=== PATIENT | female | born 1945 | race Caucasian/White ===

== ENCOUNTER 2019-10-11 11:34 | Observation (INO) ==
[2019-10-11] MEDS ORDERED: IOPAMIDOL 100 ML BOTTLE IV ONE (11:35)
[2019-10-11] MEDS ORDERED: LABETALOL 5 MG/ML ML IV ONE ×2 (11:38→12:13)
--- NOTE | 2019-10-11 11:45 | Emergency Department Note ---
Neuro HPI - General Chief Complaint: Neuro Symptoms/Deficit Stated Complaint: Right sided Uncoordination. Time Seen by Provider: 10/11/19 11:43 Source: patient Mode of arrival: ambulatory Limitations: no limitations - History of Present Illness HPI Narrative: 73-year-old female last seen normal yesterday morning-over 24 hours ago. She comes in complaining of some confusion and difficulty writing and with balance. She had hip surgery [address] Cano and has been on aspirin since then. She does have a history of blood clots. Did have high blood pressure after the surgery but does not have a history of significant high blood pressure-she is only on 5 mg of amlodipine at home. Her blood pressure is very high here at 238 systolic. No recent illness. - Related Data Home Medications: Home Medications Medication Instructions Recorded Confirmed calcium PO 12/26/17 08/26/19 aspirin 81 mg tablet,delayed 81 mg PO QDAY 01/26/19 08/26/19 release cholecalciferol (vitamin D3) 25 2,000 unit PO QDAY cap 01/26/19 08/26/19 mcg (1,000 unit) capsule Previous Rx's Medication Instructions Recorded rosuvastatin 10 mg tablet 10 mg PO QDAY #90 tab 02/10/19 sertraline 50 mg tablet 50 mg PO QDAY #30 tab 06/16/19 amlodipine 5 mg tablet 5 mg PO QDAY #90 tab 08/13/19 metronidazole 500 mg tablet 500 mg PO BID #14 tab 08/26/19 Allergies/Adverse Reactions: Allergies Allergy/AdvReac Type Severity Reaction Status Date / Time shellfish derived Allergy Severe Diarrhea Verified 07/28/19 11:31 Review of Systems All systems ED: reviewed and negative except as stated. Past Medical History - Past Medical History Attestation: Yes: The following information was validated with the patient. 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 Denies: marijuana Physical Exam No acute distress able to answer questions properly. She is using both of her arms at the shoulders and elbows normally. No difficulty with fine motor control signing her name with her right hand-she is right-handed. Speech is normal here without dysarthria. She is wearing a wig. Normocephalic atraumatic. Conjunctive are clear sclerae white nonicteric. Extraocular movements are intact. Pupils are equal round reactive to light. No nasal discharge or congestion. Oropharynx pink and moist. Tongue is midline. No dysarthria. Neck is supple without lymphadenopathy or thyromegaly. She does not have a carotid bruit but she does have a loud systolic murmur that radiates to bilateral carotid. Heart is regular rate and rhythm. 2 out of 6 systolic murmur suspect aortic. Lungs are clear to auscultation bilaterally without wheezes rales rhonchi or respiratory distress. Abdomen soft nontender nondistended. No peritoneal signs or guarding. No pedal edema. She is able to lift both legs up against gravity without difficulty and hold them up. Lmmktw-us-cyte testing is normal and I do not see any evidence of ataxia or tremor. Reasonable historian Limitations: no limitations Course Vital Signs Pulse Rate 80 10/11/19 11:34 Respiratory Rate 18 10/11/19 11:34 Blood Pressure 238/112 10/11/19 11:34 Pulse Oximetry (%) 97 10/11/19 11:34 Pulse Rate 73 10/11/19 13:00 Respiratory Rate 19 10/11/19 13:00 Blood Pressure 184/78 10/11/19 13:00 Pulse Oximetry (%) 95 10/11/19 13:00 Neuro Symptoms/Deficit - Lab Data Lab results reviewed: Yes I reviewed the patient's lab results. Result diagrams: 10/11/19 11:40 10/11/19 11:40 Lab Results 10/11/19 10/11/19 10/11/19 Range/Units 11:40 11:40 11:40 WBC 7.4 (4.50-11.00) K/mcL RBC 4.62 (3.59-5.38) M/mcL Hgb 13.0 (11.2-15.7) g/dL Hct 39.5 (34.1-44.9) % POC Hct 39.0 (36.0-48.0) % MCV 85.5 (80.0-100.0) fL MCH 28.1 (26.0-34.0) pg MCHC 32.9 (31.0-36.0) g/dL RDW 13.8 (11.5-14.5) % Plt Count 267 (140-440) K/mcL MPV 10.4 (7.4-10.4) fL Gran % 69.1 (38.0-78.0) % Lymph % (Auto) 19.8 (15.5-49.0) % Haines % (Auto) 7.1 (1.0-12.0) % Eos % (Auto) 3.7 (0.0-7.0) % Baso % (Auto) 0.3 (0.0-2.0) % Gran # 5.09 (1.80-8.00) K/mcL Lymph # (Auto) 1.46 L (1.50-4.80) K/mcL Haines # (Auto) 0.52 (0.10-0.90) K/mcL Eos # (Auto) 0.27 (0.00-0.70) K/mcL Baso # (Auto) 0.02 (0.00-0.30) K/mcL POC PT 11.9 (11.9-14.5) sec POC INR 1.0 (0.9-1.2) APTT 29 (20-37) sec POC Sodium 138 (133-145) mmol/L Sodium 139 (133-145) mmol/L POC Potassium 3.8 (3.3-5.1) mmol/L Potassium 3.9 (3.3-5.1) mmol/L POC Chloride 105 (96-108) mmol/L Chloride 103 (96-108) mmol/L Carbon Dioxide 23 (22-30) mmol/L POC Total CO2 25 (22-30) mmol/L Anion Gap 13.0 (8-16) POC BUN 19 (8-23) mg/dl BUN 16 (8-23) mg/dl Creatinine 0.6 (0.6-1.1) mg/dl POC Creatinine 0.5 L (0.6-1.1) mg/dl GFR Calculation 90 Glucose 104 (70-105) mg/dL POC Glucose 104 (70-105) mg/dL Calcium 10.0 (8.6-10.4) mg/dl POC WB Ioniz Calcium 1.28 (1.16-1.32) mmol/L Total Bilirubin 0.4 (0.0-1.0) mg/dL AST 24 (0-37) U/l ALT 19 (0-40) U/l Alkaline Phosphatase 68 (39-117) U/L Troponin T (0-0.03) ng/ml Total Protein 7.0 (5.9-8.4) gm/dL Albumin 4.0 (3.2-5.2) gm/dL Globulin 3.0 (2.2-3.7) gm/dL Albumin/Globulin Ratio 1.3 (1.0-2.3) 05/25/20 Range/Units 11:40 WBC (4.50-11.00) K/mcL RBC (3.59-5.38) M/mcL Hgb (11.2-15.7) g/dL Hct (34.1-44.9) % POC Hct (36.0-48.0) % MCV (80.0-100.0) fL MCH (26.0-34.0) pg MCHC (31.0-36.0) g/dL RDW (11.5-14.5) % Plt Count (140-440) K/mcL MPV (7.4-10.4) fL Gran % (38.0-78.0) % Lymph % (Auto) (15.5-49.0) % Haines % (Auto) (1.0-12.0) % Eos % (Auto) (0.0-7.0) % Baso % (Auto) (0.0-2.0) % Gran # (1.80-8.00) K/mcL Lymph # (Auto) (1.50-4.80) K/mcL Haines # (Auto) (0.10-0.90) K/mcL Eos # (Auto) (0.00-0.70) K/mcL Baso # (Auto) (0.00-0.30) K/mcL POC PT (11.9-14.5) sec POC INR (0.9-1.2) APTT (20-37) sec POC Sodium (133-145) mmol/L Sodium (133-145) mmol/L POC Potassium (3.3-5.1) mmol/L Potassium (3.3-5.1) mmol/L POC Chloride (96-108) mmol/L Chloride (96-108) mmol/L Carbon Dioxide (22-30) mmol/L POC Total CO2 (22-30) mmol/L Anion Gap (8-16) POC BUN (8-23) mg/dl BUN (8-23) mg/dl Creatinine (0.6-1.1) mg/dl POC Creatinine (0.6-1.1) mg/dl GFR Calculation Glucose (70-105) mg/dL POC Glucose (70-105) mg/dL Calcium (8.6-10.4) mg/dl POC WB Ioniz Calcium (1.16-1.32) mmol/L Total Bilirubin (0.0-1.0) mg/dL AST (0-37) U/l ALT (0-40) U/l Alkaline Phosphatase (39-117) U/L Troponin T < 0.01 (0-0.03) ng/ml Total Protein (5.9-8.4) gm/dL Albumin (3.2-5.2) gm/dL Globulin (2.2-3.7) gm/dL Albumin/Globulin Ratio (1.0-2.3) - Radiology Data Radiology results reviewed: Yes I reviewed the patient's radiology results. Initial CT scan of the head was read as normal without contrast. 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 Currently she has significantly elevated hypertension which we have given labetalol for. We had to give 2 doses Her NIH score was 0. I did discuss the case with Dr. Cifuentes, tele-stroke at [facility] after doing the CT scan of the head. She is not a candidate for thrombolytic because she had surgery last week and her NIH score is low. I went ahead and order the CT angiogram of the head neck for further evaluation for thromboses. CT angiogram showed left carotid stenosis which may be part of her symptomato logy-however this is chronic and her symptoms have now resolved with blood pressure coming down. On review of her chart it does look like she has a known heart murmur as well as known left carotid bruit/stenosis. Blood pressure came down into the 180s systolic. No evidence for infection but blood cultures were ordered prior to all the labs coming I discussed the case with our hospitalist, Dr. Blanco, he agreed to accept the patient for further care and evaluation in the hospital. We will start nicardipine drip Disposition: Xfer As Inpt ([facility]) Condition: Serious Referrals: Leta Chau, [Primary Care Provider] -
[2019-10-11 12:09] LABS: POC Pro Time 11.9 sec (11.9-14.5)
[2019-10-11 12:11] LABS: POC Blood Urea Nitrogen 19 mg/dl (8-23); POC CO2 25 mmol/L (22-30); POC Calcium, Ionized 1.28 mmol/L (1.16-1.32); POC Chloride 105 mmol/L (96-108); POC Creatinine 0.5 mg/dl (0.6-1.1); POC Glucose, Random 104 mg/dL (70-105); POC Potassium 3.8 mmol/L (3.3-5.1); POC Sodium 138 mmol/L (133-145)
[2019-10-11 12:30] LABS: Basophils # (Auto) 0.02 K/mcL (0.00-0.30); Basophils % (Auto) 0.3 % (0.0-2.0); Eosinophils # (Auto) 0.27 K/mcL (0.00-0.70); Eosinophils % (Auto) 3.7 % (0.0-7.0); Granulocytes % (Auto) 69.1 % (38.0-78.0); Hematocrit 39.5 % (34.1-44.9); Lymphocytes # (Auto) 1.46 K/mcL (1.50-4.80); Lymphocytes % (Auto) 19.8 % (15.5-49.0); Mean Cell Volume 85.5 fL (80.0-100.0); Mean Corpuscular HGB Conc 32.9 g/dL (31.0-36.0); Mean Platelet Volume 10.4 fL (7.4-10.4); Monocytes # (Auto) 0.52 K/mcL (0.10-0.90); Monocytes % (Auto) 7.1 % (1.0-12.0); Platelet Count 267 K/mcL (140-440); RBC 4.62 M/mcL (3.59-5.38); Red Cell Distribution Width 13.8 % (11.5-14.5); WBC 7.4 K/mcL (4.50-11.00)
[2019-10-11 12:59] LABS: ALT/SGPT 19 U/l (0-40); AST/SGOT 24 U/l (0-37); Albumin/Globulin Ratio 1.3 (1.0-2.3); Alkaline Phosphatase 68 U/L (39-117); Bilirubin,Total 0.4 mg/dL (0.0-1.0); Blood Urea Nitrogen 16 mg/dl (8-23); Carbon Dioxide 23 mmol/L (22-30); Chloride 103 mmol/L (96-108); Glomerular Filtration Rate 90; Glucose 104 mg/dL (70-105)
[2019-10-11] MEDS ORDERED: niCARdipine 25 MG in 0.9 % SODIUM CHLORIDE 240 ML IV ONE (13:08)
--- NOTE | 2019-10-11 14:02 | Internal Med History&Physical ---
Medical - H&P: [facility] Patient information: Note initiated : 10/11/19 at 1:59 pm Service Date, if different from initiated Date: [] Patient: Lourdes Chang a 73 y/o F admitted on for Right sided Uncoordination.. Chief Complaint: [] History of present illness: Ms. Chang is a 73 year old F Who presents the ED after having symptoms of confusion ataxia right upper extremity dysmetria and expressive aphasia this morning. Patient had a revision of a previous right hip surgery on Friday. She had multiple issues with the right hip. She states she has been taking her Norvasc daily and aspirin 325 since the surgery. Previous to surgery she took a baby aspirin daily. She was doing relatively well until this morning. When she woke up she says she felt on, denied confusion but felt odd. She felt like she had trouble walking and she had trouble writing with her right hand only. She was able to comprehend and understand and sometimes she said she would try to express her self but a different word would come out. The symptoms lasted from about 5 to about 11 when she was coming into the ED. When the ED physician saw her after she got back from radiology she was back to normal had NIH score was 0 at that point. Case was discussed with stroke neurologist, patient not a candidate for any thrombolytics. CT head neck was done which showed carotid artery stenosis on the left side which is about 7%. She has been following with Dr. Coley for this. She does not take her blood pressure at home does not know what it typically runs. She is on amlodipine 5 mg daily. She has no history of stroke in the past. She does have a history of vascular stents in the legs. She did have a pulmonary embolus which was related to hormone replacement therapy. She denies any dysarthria or vision changes. Denies headaches. Denies focal numbness or weakness. Review of Systems: Pertinent positives as above. Denies headache/fever/chills/nausea/vomiting/chest or abdominal pain/cough/dyspnea/diarrhea. Remaining 10 point review of system reviewed negative Medical - H&P: [facility] Medical history: Medical History (Last Reviewed 08/26/19 @ 10:22 by Leta Chau DO) Anxiety (Chronic) Carotid art occ w/o infarc (Chronic) Carotid artery disease (Chronic) Left carotid bruit (Chronic) Peripheral vascular disease, unspecified (Chronic) Pulmonary embolism (Resolved) Hypertension, essential (Chronic ~02/2016) Hyperlipidemia (Chronic ~2009) Cervical cancer (Chronic) Murmur (Chronic ~04/01/18) Osteoarthritis of right hip (Chronic) Drop foot gait (Chronic) Blood clot in vein (Chronic ~2014) Right knee pain (Chronic) Incontinence in female (Chronic) Wellness examination (Chronic) 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) Chronic sinusitis (Chronic) Other synovitis and tenosynovitis, unspecified shoulder (Chronic) Atrophic vaginitis (Chronic) Allergic rhinitis (Chronic) Osteoporosis (Chronic) Vaginal dryness (Chronic) Female hypogonadism syndrome (Chronic) Dysphagia, oropharyngeal phase (Chronic) Abdominal aortic ectasia (Chronic) Right hip pain (Chronic) Bleeding tendency (Chronic) H/O mammogram (Acute) Acute bronchitis (Resolved) Cough (Resolved) Edema (Resolved) Encounter for removal of sutures (Resolved) History of tobacco use (Resolved) Hormone replacement therapy (postmenopausal) (Resolved) Hypertension (Resolved) Infectious colitis, enteritis and gastroenteritis (Resolved) Laceration (Resolved) Lower extremity surgery planned (Resolved) SOB (shortness of breath) (Resolved) Sprain of ligaments of lumbar spine (Resolved) Urinary tract infection (Resolved) Past Surgical History (Last Reviewed 08/26/19 @ 10:22 by Leta Chau DO) H/O colonoscopy (Chronic ~2006) H/O shoulder surgery (Chronic ~2015) History of partial hysterectomy (Chronic ~1991) History of surgery (Chronic) History of surgery (Chronic 04/23/17) History of total right hip arthroplasty (Chronic 04/13/18) Hx of appendectomy (Chronic ~1961) Family History (Last Reviewed 08/26/19 @ 10:22 by Leta Chau DO) Father Arthritis Dementia Mother Arthritis Cancer Hypertension, essential Stroke Social History (Last Updated 08/26/19 @ 10:28 by Leta Chau DO) No Social History Section defined Medical - H&P: Meds Home Medications Medication Instructions Recorded Confirmed Type calcium PO 12/26/17 08/26/19 History aspirin 81 mg tablet,delayed 81 mg PO QDAY 01/26/19 08/26/19 History release cholecalciferol (vitamin D3) 25 2,000 unit PO QDAY cap 01/26/19 08/26/19 History mcg (1,000 unit) capsule rosuvastatin 10 mg tablet 10 mg PO QDAY #90 tab 02/10/19 08/26/19 Rx sertraline 50 mg tablet 50 mg PO QDAY #30 tab 06/16/19 08/26/19 Rx amlodipine 5 mg tablet 5 mg PO QDAY #90 tab 08/13/19 08/26/19 Rx metronidazole 500 mg tablet 500 mg PO BID #14 tab 08/26/19 08/26/19 Rx Allergies Allergy/AdvReac Type Severity Reaction Status Date / Time shellfish derived Allergy Severe Diarrhea Verified 07/28/19 11:31 Medical - H&P: Exam - Constitutional Vitals: Pulse Resp BP Pulse Ox 74 17 153/138 100 10/11/19 13:46 10/11/19 13:46 10/11/19 13:46 10/11/19 13:46 Exam: General: Alert, Awake, No acute Distress Eyes/N/T: EOMI, PERRL, Head/Neck: neck supple, normocephalic atraumatic CV: RRR, 2/6 DIMA, normal s1/s2 Pulm: Clear b/l, no wheezing/rhonchi/rales Abd: soft, nontender, +BS x4 Ext: no clubbing/cyanosis/edema Neuro: Alert, no focal deficits, moves all extremities, CN 2-12 grossly intact, symmetrical strength b/l upper, sensations intact b/l upper/lower. Skin: warm/dry Medical - H&P: Reslt - Labs CBC & Chem 7: 10/11/19 11:40 10/11/19 11:40 Labs: Short CBC 10/11/19 Range/Units 11:40 WBC 7.4 (4.50-11.00) K/mcL Hgb 13.0 (11.2-15.7) g/dL Hct 39.5 (34.1-44.9) % Plt Count 267 (140-440) K/mcL BMP 10/11/19 11:40 Sodium 139 Potassium 3.9 Chloride 103 Carbon Dioxide 23 BUN 16 Creatinine 0.6 Glucose 104 Calcium 10.0 Cardiac Enzymes 10/11/19 Range/Units 11:40 Troponin T < 0.01 (0-0.03) ng/ml Liver Function 10/11/19 Range/Units 11:40 Total Bilirubin 0.4 (0.0-1.0) mg/dL AST 24 (0-37) U/l ALT 19 (0-40) U/l Alkaline Phosphatase 68 (39-117) U/L Albumin 4.0 (3.2-5.2) gm/dL Medical - H&P: A/P - Narrative A/P Narrative: A: *Stroke-like symptoms of Ataxia/RUE Dysmetria/Expressive Aphasia: 2/2 TIA vs HTN Encephalopathy -No MASON/N/V/Confusion and no edema on CT, suspect likely TIA. She has been taking her Norvasc -ABCD=5 *Known Left SIOMARA: follows with Dr. Coley *HTN: on norvasc *Recent hip repair revision by Dr. Cano: *Depression: *PVD w/stents to the legs * P: -IV hydration -Plavix(switched from home ASA)/Statin -monitor BP -MRI pending -echo pending - -f/u with Dr. Coley -pt/ot -ppx: lovenox full code
[2019-10-11 14:19] LABS: Appearance,Urine CLEAR; Bacteria,Urine 0 /hpf (0); Bilirubin,Urine NEG (NEG); Color,Urine YELLOW; Culture Indicated,Urine NO; Glucose,Urine (UA) NEGATIVE (NEG); Ketones,Urine NEG (NEG); Leukocyte Esterase,Urine NEG /uL (NEG); Nitrate,Urine NEG (NEG); Protein,Urine NEG (NEG); Specific Gravity,Urine 1.023 (1.000-1.035); Urine Blood NEG mg/dL (<0.03); Urine RBC 1 /hpf (0-1); Urine Squamous Epithelial Cell < 1 /hpf (0-4); Urine WBC 1 /hpf (0-4); Urobilinogen,Urine NEG (NEG)
[2019-10-11] MEDS ORDERED: ACETAMINOPHEN 325 MG TABLET PO PRN (14:38)
[2019-10-11] MEDS ORDERED: ONDANSETRON 4 MG/2 ML VIAL IV PRN (14:38)
[2019-10-11] MEDS ORDERED: SENNOSIDES 1 TABLET PO PRN (14:38)
[2019-10-11] MEDS ORDERED: POTASSIUM CHLORIDE 40 MEQ in DEXTROSE 5% IN WATER 500 ML IV PRN (14:38)
[2019-10-11] MEDS ORDERED: POLYETHYLENE GLYCOL 3350 17 GM PACKET PO PRN (14:38)
[2019-10-11] MEDS ORDERED: 0.9 % SODIUM CHLORIDE 1,000 ML IV SCH (14:38)
[2019-10-11] MEDS ORDERED: POTASSIUM CHLORIDE 20 MEQ TABLET PO PRN ×2 (14:38)
[2019-10-11] MEDS ORDERED: MAGNESIUM SULFATE 2 GM/50 ML BAG IV PRN (14:38)
[2019-10-11] MEDS: 0.9 % SODIUM CHLORIDE 10 ML SYRINGE IV SCH ×2 (14:57→21:28)
--- NOTE | 2019-10-11 15:03 | Cat Scan Report ---
History: New stroke symptoms with right side weakness TECHNIQUE: The brain was imaged without contrast at 2.5 mm intervals. The radiation exposure was limited using dose reduction technology. FINDINGS: There is no evidence of infarct, edema, hemorrhage or mass effect. The ventricles are normal. There is mild atrophy in the frontal and temporal lobes. No abnormal extra-axial fluid collection is present. The bone windows show no skull lesion. IMPRESSION: Normal exam. Dr. Mathews was called with results at 12:00 Interpreted and Authenticated by: Dontae Solares 10/11/19
--- NOTE | 2019-10-11 15:12 | Cat Scan Report ---
History: Acute stroke symptoms with right-sided weakness TECHNIQUE: Following injection of intravenous nonionic contrast, arterial phase images were acquired of the head and neck. Sagittal and coronal reformats were created of the head and neck separately along with MIPS images. Radiation exposure was limited using dose reduction technology. FINDINGS: NECK: There is moderate atherosclerosis in the aortic arch. There is a large amount of calcified plaque at the origin of the innominate artery causing 5060% stenosis. There is a 40-50% stenosis at the origin of the left common carotid off the aorta. Is also large amount of plaque in the seventh left subclavian artery near the origin of the left vertebral causing approximately 50% stenosis in the left vertebral. There is no plaque formation portion right vertebral but the right vertebral artery is diffusely hypoplastic throughout the neck. At the origin of the right subclavian artery there is a large amount calcified plaque causing 75-80% stenosis. There is also a large amount of plaque at the left carotid bifurcation causing approximately 89% stenosis at the origin of the external carotid and 60-70% stenosis at the origin of the internal carotid. There is also moderate amount of plaque at the right carotid bifurcation, causing less than 50% stenosis at the origins of the internal and external carotids. Mid and distal portions of the internal carotids are moderately tortuous. There is no evidence of soft tissue neck mass or enlarged lymph nodes. There is degenerative disc disease and arthritis with the greatest disc degeneration at C5-6. Head: The left vertebral artery is dominant. The intracranial portion of the right vertebral artery is patent but hypoplastic. The basilar artery and posterior fossa circulation are otherwise normal. There is mild to moderate plaque formation in the cavernous portions of both internal carotids. These are not causing hemodynamically significant stenoses. The supraclinoid portions of both internal carotids are normal. The anterior, middle and posterior cerebral arteries are normal in caliber and symmetric. There is no intracranial vascular occlusion, thrombosis or evidence of vasculitis. No aneurysm or vascular malformation are present. There is no enhancing lesion. IMPRESSION: Moderate atherosclerotic disease at the thoracic inlet and in the carotid bifurcations. There are hemodynamically significant stenosis at the origin of the right subclavian artery and the left proximal external carotid and probably a hemodynamically significant stenosis at the origin of the left internal carotid Normal intracranial arterial circulation Dr. Mathews was called with the results Interpreted and Authenticated by: Dontae Solares 10/11/19
[2019-10-11] MEDS: CLOPIDOGREL 75 MG TABLET PO SCH (16:26)
[2019-10-11] MEDS: ATORVASTATIN 40 MG TABLET PO SCH (21:21)
[2019-10-11] MEDS: SERTRALINE 50 MG TABLET PO SCH (21:21)
[2019-10-11] MEDS: DOCUSATE SODIUM 100 MG CAPSULE PO SCH (21:21)
[2019-10-11] MEDS: FAMOTIDINE 20 MG TABLET PO SCH (21:24)
[2019-10-11] MEDS ORDERED: FAMOTIDINE 20 MG TABLET PO ONE (21:27)
[2019-10-11] MEDS: LABETALOL 5 MG/ML ML IV PRN (22:15)
[2019-10-12] MEDS: LABETALOL 5 MG/ML ML IV PRN (03:07)
[2019-10-12] MEDS: 0.9 % SODIUM CHLORIDE 10 ML SYRINGE IV SCH ×3 (05:52→21:01)
[2019-10-12 06:54] LABS: HDL Cholesterol 62 mg/dl (>40); LDL Cholesterol,Calculated 109 mg/dl (SEE CHART); Non-HDL Cholesterol 132 (LDL TARGET+30); Triglycerides 116 mg/dl (<150)
[2019-10-12 06:55] LABS: ALT/SGPT 15 U/l (0-40); AST/SGOT 19 U/l (0-37); Albumin 3.7 gm/dL (3.2-5.2); Albumin/Globulin Ratio 1.5 (1.0-2.3); Alkaline Phosphatase 60 U/L (39-117); Bilirubin,Direct < 0.2 mg/dL (0.0-0.3); Bilirubin,Total 0.4 mg/dL (0.0-1.0); Blood Urea Nitrogen 10 mg/dl (8-23); Calcium 9.2 mg/dl (8.6-10.4); Carbon Dioxide 24 mmol/L (22-30); Chloride 105 mmol/L (96-108); Globulin 2.5 gm/dL (2.2-3.7); Glomerular Filtration Rate 95; Glucose 94 mg/dL (70-105); Lactate Dehydrogenase 170 U/L (94-250); Phosphorous 2.7 mg/dL (2.7-4.5); Triglycerides 115 mg/dl (<150); Uric Acid 3.9 mg/dL (2.5-8.0)
--- NOTE | 2019-10-12 07:56 | Internal Med Progress Note ---
Medical - PN: Subj Patient information: Note initiated : 10/12/19 at 7:53 am Service Date, if different from initiated Date: [] Patient: Lourdes Chang a 73 y/o F admitted on 10/11/19 for Right sided Uncoordination.. Chief Complaint: [] Interval history: Ms. Chang is a 73 year old F Who presents the ED after having symptoms of confusion ataxia right upper extremity dysmetria and expressive aphasia this morning. Patient had a revision of a previous right hip surgery on Friday. She had multiple issues with the right hip. She states she has been taking her Norvasc daily and aspirin 325 since the surgery. Previous to surgery she took a baby aspirin daily. She was doing relatively well until this morning. When she woke up she says she felt on, denied confusion but felt odd. She felt like she had trouble walking and she had trouble writing with her right hand only. She was able to comprehend and understand and sometimes she said she would try to express her self but a different word would come out. The symptoms lasted from about 5 to about 11 when she was coming into the ED. When the ED physician saw her after she got back from radiology she was back to normal had NIH score was 0 at that point. Case was discussed with stroke neurologist, patient not a candidate for any thrombolytics. CT head neck was done which showed carotid artery stenosis on the left side which is about 7%. She has been following with Dr. Coley for this. She does not take her blood pressure at home does not know what it typically runs. She is on amlodipine 5 mg daily. She has no history of stroke in the past. She does have a history of vascular stents in the legs. She did have a pulmonary embolus which was related to hormone replacement therapy. She denies any dysarthria or vision changes. Denies headaches. Denies focal numbness or weakness. EKG sinus with several PVC's 10/11 Poor sleep last night. Overall doing well but does have still little bit of discoordination in that right upper extremity. No new complaints no abnormalities on telemetry. Review of Systems: denies headache/fever/chills/nausea/vomiting/chest or abdominal pain/cough/dyspnea/diarrhea. Otherwise see above. - Constitutional Vitals: Vital Signs Temp Pulse Resp BP Pulse Ox 97.6 F 76 33 H 162/114 99 10/12/19 00:01 10/11/19 14:20 10/12/19 07:01 10/12/19 07:01 10/12/19 07:01 Period Temp Pulse Resp BP Sys/Catherine Pulse Ox Last 24 Hr 97.6 F-98.1 F 70-80 10-33 122-238/66-159 92-100 Intake and Output 10/11/19 10/12/19 10/12/19 21:59 05:59 13:59 Intake Total 166 240 Output Total 1500 850 Balance -1334 -610 Weight 71.486 kg Intake & Output: Intake & Output 10/11/19 10/12/19 10/12/19 21:59 05:59 13:59 Intake Total 166 240 Output Total 1500 850 Balance -1334 -610 Weight 71.486 kg Intake: IV 166 Cardene 25 MG In Sodium 166 Chloride 0.9% 240 ml @ 5 MG/HR 50 mls/hr IV ONCE ONE Rx#: [id number] Oral 240 Output: Void Amount 1500 850 Other: Meal Dinner Percent of Meal Consumed 100% Feeding Ability Independent Urine Appearance Clear Clear Urine Color Bright Yellow Bright Yellow Urine Odor Normal Normal Stool Size Moderate Stool Color Brown Stool Consistency Soft # Bowel Movements 1 Exam: General: Alert, Awake, No acute Distress Eyes/N/T: EOMI, , Head/Neck: neck supple, CV: RRR, 2/6 DIMA, Pulm: Clear b/l, no wheezing/rhonchi/rales Abd: soft, nontender, +BS x4 Ext: no clubbing/cyanosis/edema Neuro: Alert, RUE dysmetria, moves all extremities, no focal weakness Skin: warm/dry Medical - PN: Obj Da - Labs CBC & Chem 7: 10/11/19 11:40 10/12/19 05:05 Labs: Abnormal Lab Results 10/12/19 10/12/19 10/11/19 05:05 05:05 11:40 Lymph # (Auto) Creatinine 0.5 L POC Creatinine 0.5 L LDL Cholesterol, Calc 109 H Non-HDL Cholesterol 132 H 10/11/19 11:40 Lymph # (Auto) 1.46 L Creatinine POC Creatinine LDL Cholesterol, Calc Non-HDL Cholesterol Meds: Medications Acetaminophen (Tylenol) 650 mg PO Q6HP PRN PRN Reason: PAIN/FEVER > 101 Amlodipine Besylate (Norvasc) 5 mg PO QDAY [facility] Atorvastatin Calcium (Lipitor) 40 mg PO [facility] Last Admin: 10/11/19 21:21 Dose: 40 mg Documented by: Clopidogrel Bisulfate (Plavix) 75 mg PO DAILY [facility] Last Admin: 10/11/19 16:26 Dose: 75 mg Documented by: Docusate Sodium (Colace) 100 mg PO BID [facility] Last Admin: 10/11/19 21:21 Dose: 100 mg Documented by: Enoxaparin Sodium (Lovenox) 40 mg SQ DAILY [facility] Famotidine (Pepcid) 20 mg PO BID [facility] Last Admin: 10/11/19 21:24 Dose: 20 mg Documented by: Potassium Chloride 40 meq/ (Dextrose) 520 mls @ 130 mls/hr IV UD PRN PRN Reason: Potassium < 3 Magnesium Sulfate (Magnesium Sulfate) 2 gm in 50 mls @ 50 mls/hr IV UD PRN PRN Reason: Magnesium </= 1.6 Labetalol HCl (Trandate) 0 mg IV Q2HP PRN PRN Reason: Hypertension Last Admin: 10/12/19 03:07 Dose: 20 mg Documented by: Ondansetron HCl (Zofran) 4 mg IV Q4HP PRN PRN Reason: Nausea And Vomiting Polyethylene Glycol (Miralax) 17 gm PO DAILYP PRN PRN Reason: Constipation Potassium Chloride (Kdur) 40 meq PO UD PRN PRN Reason: Potssium is 3-3.5 Potassium Chloride (Kdur) 40 meq PO UD PRN PRN Reason: Potassium < 3 Senna (Senokot) 2 tab PO DAILYP PRN PRN Reason: Constipation Sertraline HCl (Zoloft) 50 mg PO [facility] Last Admin: 10/11/19 21:21 Dose: 50 mg Documented by: Sodium Chloride (Saline Flush) 10 ml IV Q8 [facility] Last Admin: 10/12/19 05:52 Dose: 10 ml Documented by: Medical - PN: A/P - Time Spent With Patient Total time spent is greater than 50% in coordination of care (as documented) at patient's floor/unit and/or counseling patient: - Narrative A/P Narrative: A: *Stroke-like symptoms of Ataxia/RUE Dysmetria/Expressive Aphasia: 2/2 TIA vs HTN Encephalopathy. symptoms resolved except Dysmetria -No MASON/N/V/Confusion and no edema on CT, suspect likely TIA. She has been taking her Norvasc -ABCD=5 *Known Left SIOMARA: follows with Dr. Coley *HTN: on norvasc *Recent hip repair revision by Dr. Cano: *Depression: *PVD w/stents to the legs *h/o right foot drop P: -Plavix(switched from home ASA)/Statin -monitor BP, permissive HTN 24-48hrs -MRI pending -echo pending - -f/u with Dr. Coley -pt/ot -ppx: lovenox full code Medical - PN: Qual - Stroke Onset of Symptoms Date: 10/11/19 Onset of Symptoms Time: 05:00 Symptom Onset Unknown: Yes - VTE Deep Vein Thrombosis/Pulmonary Embolism Present on Admission: No
[2019-10-12] MEDS ORDERED: amLODIPine 5 MG TABLET PO SCH (09:00)
[2019-10-12] MEDS ORDERED: LABETALOL 5 MG/ML ML IV PRN (09:05)
[2019-10-12] MEDS: DOCUSATE SODIUM 100 MG CAPSULE PO SCH ×2 (09:05→21:01)
[2019-10-12] MEDS: ENOXAPARIN 40 MG/0.4 ML SYRINGE SQ SCH (09:40)
[2019-10-12] MEDS: CLOPIDOGREL 75 MG TABLET PO SCH (09:41)
[2019-10-12] MEDS: FAMOTIDINE 20 MG TABLET PO SCH ×2 (09:41→21:01)
--- NOTE | 2019-10-12 10:44 | Discharge Summary ---
Medical - DS: Prov Patient information: Note initiated : 10/12/19 at 10:41 am Service Date, if different from initiated Date: [] Patient: Lourdes Chang 73 y/o F admitted on 10/11/19 for Right sided Uncoordination.. Chief Complaint: [] Date of admission: 10/11/19 14:20 Discharge date: 10/13/19 Primary care physician: Leta Chau DO Consults: 10/11/19 13:58 Consult to Physician [CONS] Stat Comment: Consulting Provider: Enrico Blanco Reason For Exam: Physician to Consult Medical - DS: Meds - Discharge Medications Prescriptions: Aspirin [Ecotrin] 81 mg PO DAILY #81 tab.ec Clopidogrel [Plavix] 75 mg PO ONCE #30 tab Active and Home Medications: Home Medications cholecalciferol (vitamin D3) 25 mcg (1,000 unit) capsule 2,000 unit PO QDAY cap 01/26/19 [History Confirmed 10/11/19 Last Taken 10/11/19 07:00] rosuvastatin 10 mg tablet 10 mg PO QDAY #90 tab 02/10/19 [Rx Confirmed 10/11/19 Last Taken 10/11/19 07:00] amlodipine 5 mg tablet 5 mg PO QDAY #90 tab 08/13/19 [Rx Confirmed 10/11/19 Last Taken 10/10/19 21:00] Aspirin [Aspirin EC] 325 mg PO DAILY 10/11/19 [History Confirmed 10/11/19 Last Taken 10/10/19 21:00] Calcium Phosphate Trib/Vit D3 [Calcium + Vitamin D3 Gummies] 2 tab PO DAILY 10/11/19 [History Confirmed 10/11/19 Last Taken 10/11/19 07:00] Lactobacillus [Culturelle] 2 cap PO DAILY 10/11/19 [History Confirmed 10/11/19 Last Taken 10/11/19 07:00] Union-3 Fatty Acids/Fish Oil [Fish Oil 1,000 mg Capsule] 1 cap PO DAILY 10/11/19 [History Confirmed 10/11/19 Last Taken 10/11/19 07:00] Sertraline [Zoloft] 50 mg PO HS 10/11/19 [History Confirmed 10/11/19 Last Taken 10/10/19 21:00] Home Medications cholecalciferol (vitamin D3) 25 mcg (1,000 unit) capsule 2,000 unit PO QDAY cap 01/26/19 [History Confirmed 10/11/19 Last Taken 10/11/19 07:00] rosuvastatin 10 mg tablet 10 mg PO QDAY #90 tab 02/10/19 [Rx Confirmed 10/11/19 Last Taken 10/11/19 07:00] amlodipine 5 mg tablet 5 mg PO QDAY #90 tab 08/13/19 [Rx Confirmed 10/11/19 Last Taken 10/10/19 21:00] Calcium Phosphate Trib/Vit D3 [Calcium + Vitamin D3 Gummies] 2 tab PO DAILY 10/11/19 [History Confirmed 10/11/19 Last Taken 10/11/19 07:00] Lactobacillus [Culturelle] 2 cap PO DAILY 10/11/19 [History Confirmed 10/11/19 Last Taken 10/11/19 07:00] Union-3 Fatty Acids/Fish Oil [Fish Oil 1,000 mg Capsule] 1 cap PO DAILY 10/11/19 [History Confirmed 10/11/19 Last Taken 10/11/19 07:00] Sertraline [Zoloft] 50 mg PO HS 10/11/19 [History Confirmed 10/11/19 Last Taken 10/10/19 21:00] Clopidogrel [Plavix] 75 mg PO ONCE #30 tablet 10/12/19 [Rx Last Taken Unknown] Medical - DS: Hosp Hospital Course: Ms. Chang is a 73 year old F Who presents the ED after having symptoms of confusion ataxia right upper extremity dysmetria and expressive aphasia this morning. Patient had a revision of a previous right hip surgery on Friday. She had multiple issues with the right hip. She states she has been taking her Norvasc daily and aspirin 325 since the surgery. Previous to surgery she took a baby aspirin daily. She was doing relatively well until this morning. When she woke up she says she felt on, denied confusion but felt odd. She felt like she had trouble walking and she had trouble writing with her right hand only. She was able to comprehend and understand and sometimes she said she would try to express her self but a different word would come out. The symptoms lasted from about 5 to about 11 when she was coming into the ED. When the ED physician saw her after she got back from radiology she was back to normal had NIH score was 0 at that point. Case was discussed with stroke neurologist, patient not a candidate for any thrombolytics. CT head neck was done which showed carotid artery stenosis on the left side which is about 7%. She has been following with Dr. Coley for this. She does not take her blood pressure at home does not know what it typically runs. She is on amlodipine 5 mg daily. She has no history of stroke in the past. She does have a history of vascular stents in the legs. She did have a pulmonary embolus which was related to hormone replacement therapy. She denies any dysarthria or vision changes. Denies headaches. Denies focal numbness or weakness. EKG sinus with several PVC's 10/11 Poor sleep last night. Overall doing well but does have still little bit of discoordination in that right upper extremity. No new complaints no abnormalities on telemetry. MRI showing new left thalamus infarct 8 x [address] case [address] Coley. Patient will be on aspirin and Plavix and follow-up in his office upon discharge for evaluation of intervention. 10/12 Overnight events. Stable for discharge. A: *Stroke-like symptoms of Ataxia/RUE Dysmetria/Expressive Aphasia: 2/2 TIA vs HTN Encephalopathy. symptoms resolved except Dysmetria -No MASON/N/V/Confusion and no edema on CT, suspect likely TIA. She has been taking her Norvasc -ABCD=5 *Known Left SIOMARA: follows with Dr. Coley *HTN: on norvasc *Recent hip repair revision by Dr. Cano: *Depression: *PVD w/stents to the legs *h/o right foot drop Discharge diagnosis: Stroke carotid artery disease hypertension Secondary discharge diagnosis: Recent hip repair depression peripheral vascular disease right foot drop - Time Spent with Patient Total time spent providing and/or coordinating discharge services: Greater than 30 minutes Medical - DS: Exam - Constitutional Vitals: Vital Signs Temp Pulse Resp BP Pulse Ox 10/12/19 10:01 25 H 171/81 97 10/12/19 09:01 15 155/73 10/12/19 08:47 21 173/149 97 10/12/19 08:00 97 10/12/19 07:01 33 H 162/114 99 10/12/19 06:01 164/80 10/12/19 05:17 20 94 05/26/20 05:01 27 H 160/74 93 05//20 04:01 18 145/73 95 0520 03:38 19 183/66 93 05/20 03:01 12 191/81 98 05/20 02:01 18 184/70 95 05//20 01:01 18 174/85 98 05//20 00:20 19 96 0520 00:01 97.6 F 19 184/77 97 0520 23:01 20 181/91 98 05//20 22:35 14 185/77 92 05/20 22:01 19 193/83 96 05/25/20 21:01 21 174/81 96 05/20 20:01 97.9 F 19 171/88 97 0520 19:16 24 H 174/79 95 0520 19:03 21 182/82 97 05//20 18:47 13 122/106 98 05 18:33 21 162/102 99 05 18:16 16 155/70 98 0520 18:01 19 158/78 0520 16:46 28 H 135/115 05/20 16:31 15 167/75 0520 16:19 13 177/111 05 16:03 17 150/92 98 0520 16:01 18 170/159 98 0520 15:46 17 159/76 97 05//20 15:31 10 L 165/70 97 0520 15:16 22 150/74 95 0520 15:01 13 161/78 97 05//20 14:46 14 151/76 98 05//20 14:34 19 164/72 05//20 14:23 153/122 99 05/25/20 14:20 76 16 171/81 98 05//20 13:58 98.1 F 73 18 188/74 99 05/25/20 13:46 74 17 153/138 100 05/25/20 13:16 31 H 204/81 05/25/20 13:00 73 19 184/78 95 05/25/20 12:47 73 17 97 05//20 12:45 76 17 182/67 92 05/25/20 12:38 77 19 176/82 98 10/11/19 12:25 181/76 10/11/19 12:16 76 13 209/79 99 10/11/19 12:01 75 23 H 198/80 97 10/11/19 11:54 70 10 L 213/84 94 10/11/19 11:43 238/112 10/11/19 11:34 80 18 238/112 97 Intake and Output 10/11/19 10/12/19 10/12/19 21:59 05:59 13:59 Intake Total 166 240 240 Output Total 1500 850 Balance -8341 -937 240 Intake: IV 166 Cardene 25 MG In Sodium 166 Chloride 0.9% 240 ml @ 5 MG/HR 50 mls/hr IV ONCE ONE Rx#: [id number] Oral 240 240 Output: Void Amount 1500 850 Other: Meal Dinner Breakfast Percent of Meal Consumed 100% 100% Feeding Ability Independent Urine Appearance Clear Clear Clear Urine Color Bright Yellow Bright Yellow Bright Yellow Urine Odor Normal Normal Normal Stool Size Moderate Moderate Stool Color Brown Brown Stool Consistency Soft Soft # Bowel Movements 1 Weight 71.486 kg Medical - DS: Data Labs on day of discharge: Labs from last 24 hours 10/12/19 10/12/19 10/11/19 05:05 05:05 13:20 WBC RBC Hgb Hct POC Hct MCV MCH MCHC RDW Plt Count MPV Gran % Lymph % (Auto) Ogle % (Auto) Eos % (Auto) Baso % (Auto) Gran # Lymph # (Auto) Ogle # (Auto) Eos # (Auto) Baso # (Auto) POC PT POC INR APTT POC Sodium Sodium 139 POC Potassium Potassium 3.8 POC Chloride Chloride 105 Carbon Dioxide 24 POC Total CO2 Anion Gap 10.0 POC BUN BUN 10 Creatinine 0.5 L POC Creatinine GFR Calculation 95 Glucose 94 POC Glucose Uric Acid 3.9 Calcium 9.2 POC WB Ioniz Calcium Phosphorus 2.7 Magnesium 1.9 Total Bilirubin 0.4 Direct Bilirubin < 0.2 GGT 15 AST 19 ALT 15 Alkaline Phosphatase 60 Lactate Dehydrogenase 170 Troponin T Total Protein 6.2 Albumin 3.7 Globulin 2.5 Albumin/Globulin Ratio 1.5 Triglycerides 115 116 Cholesterol 194 LDL Cholesterol, Calc 109 H Non-HDL Cholesterol 132 H HDL Cholesterol 62 Urine Color Yellow Urine Appearance Clear Urine pH 7.0 Ur Specific [place] 1.023 Urine Protein Neg Urine Glucose (UA) Negative Urine Ketones Neg Urine Occult Blood Neg Urine Nitrate Neg Urine Bilirubin Neg Urine Urobilinogen Neg Ur Leukocyte Esterase Neg Urine RBC 1 Urine WBC 1 Ur Squamous Epith Cells < 1 Urine Bacteria 0 Ur Culture Indicated? No 10/11/19 10/11/19 10/11/19 11:40 11:40 11:40 WBC RBC Hgb Hct POC Hct 39.0 MCV MCH MCHC RDW Plt Count MPV Gran % Lymph % (Auto) Ogle % (Auto) Eos % (Auto) Baso % (Auto) Gran # Lymph # (Auto) Ogle # (Auto) Eos # (Auto) Baso # (Auto) POC PT 11.9 POC INR 1.0 APTT 29 POC Sodium 138 Sodium 139 POC Potassium 3.8 Potassium 3.9 POC Chloride 105 Chloride 103 Carbon Dioxide 23 POC Total CO2 25 Anion Gap 13.0 POC BUN 19 BUN 16 Creatinine 0.6 POC Creatinine 0.5 L GFR Calculation 90 Glucose 104 POC Glucose 104 Uric Acid Calcium 10.0 POC WB Ioniz Calcium 1.28 Phosphorus Magnesium Total Bilirubin 0.4 Direct Bilirubin GGT AST 24 ALT 19 Alkaline Phosphatase 68 Lactate Dehydrogenase Troponin T < 0.01 Total Protein 7.0 Albumin 4.0 Globulin 3.0 Albumin/Globulin Ratio 1.3 Triglycerides Cholesterol LDL Cholesterol, Calc Non-HDL Cholesterol HDL Cholesterol Urine Color Urine Appearance Urine pH Ur Specific [place] Urine Protein Urine Glucose (UA) Urine Ketones Urine Occult Blood Urine Nitrate Urine Bilirubin Urine Urobilinogen Ur Leukocyte Esterase Urine RBC Urine WBC Ur Squamous Epith Cells Urine Bacteria Ur Culture Indicated? 10/11/19 11:40 WBC 7.4 RBC 4.62 Hgb 13.0 Hct 39.5 POC Hct MCV 85.5 MCH 28.1 MCHC 32.9 RDW 13.8 Plt Count 267 MPV 10.4 Gran % 69.1 Lymph % (Auto) 19.8 Ogle % (Auto) 7.1 Eos % (Auto) 3.7 Baso % (Auto) 0.3 Gran # 5.09 Lymph # (Auto) 1.46 L Ogle # (Auto) 0.52 Eos # (Auto) 0.27 Baso # (Auto) 0.02 POC PT POC INR APTT POC Sodium Sodium POC Potassium Potassium POC Chloride Chloride Carbon Dioxide POC Total CO2 Anion Gap POC BUN BUN Creatinine POC Creatinine GFR Calculation Glucose POC Glucose Uric Acid Calcium POC WB Ioniz Calcium Phosphorus Magnesium Total Bilirubin Direct Bilirubin GGT AST ALT Alkaline Phosphatase Lactate Dehydrogenase Troponin T Total Protein Albumin Globulin Albumin/Globulin Ratio Triglycerides Cholesterol LDL Cholesterol, Calc Non-HDL Cholesterol HDL Cholesterol Urine Color Urine Appearance Urine pH Ur Specific [place] Urine Protein Urine Glucose (UA) Urine Ketones Urine Occult Blood Urine Nitrate Urine Bilirubin Urine Urobilinogen Ur Leukocyte Esterase Urine RBC Urine WBC Ur Squamous Epith Cells Urine Bacteria Ur Culture Indicated? Medical - DS: A/P - Patient/Caregiver Discharge Instructions Activity: increase activity as tolerated Diet: Cardiac Prescriptions: Aspirin [Ecotrin] 81 mg PO DAILY #81 tab.ec Clopidogrel [Plavix] 75 mg PO ONCE #30 tab - Follow up Plan Follow up with: Selvin Coley MD [Physician] - 11/22/19 8:00 am (Continue your previous scheduled appointment) Selvin Cano MD [Physician] - (Continue your previous scheduled appointment) Leta Chau DO [Primary Care Provider] - 10/18/19 11:00 am Disposition: Home, Self-Care Care Plan Goals: This discharge packet is provided to you to help keep you informed about your care. We want to ensure you get everything you need when you go home. You will also be receiving a call from us in a few days to follow up with you and see how you are doing since your discharge. This gives us a chance to listen to any concerns you maybe experiencing since you were discharged or any additional needs you may have, as well as providing us feedback on your care experience. We strive to always provide excellent care and thank you for your feedback and for choosing [facility]. Prognosis: Fair Rehab Potential: Fair Medical - DS: Qual - VTE Deep Vein Thrombosis/Pulmonary Embolism Present on Admission: No
[2019-10-12] MEDS ORDERED: LORazepam 2 MG/ML VIAL IV ONE (10:52)
--- NOTE | 2019-10-12 14:52 | Magnetic Resonance Report ---
History: Stroke symptoms with lack of coordination in the right hand which has partially resolved since yesterday TECHNIQUE: Sagittal T1, axial diffusion and ADC map images were acquired. The study was terminated before the axial T2-weighted images were acquired, after the technologist found out that the patient has stents of undetermined material in the pelvis and legs. FINDINGS: There is a cluster of small acute lacunar infarcts along the anterior lateral border of the left thalamus. The overall size of this cluster is 8 x 16 mm. There is no associated hemorrhage. This infarct was not seen on the CT scan performed yesterday. The remainder of the brain is normal. There is no evidence of old infarct. No mass or hemorrhage are present. The ventricles are normal in size. IMPRESSION: New infarct in the left thalamus Dr. Blanco was called with the results Interpreted and Authenticated by: Dontae Solares 10/12/19
[2019-10-12] MEDS: ASPIRIN 81 MG TAB.CHEW PO SCH (15:30)
[2019-10-12] MEDS ORDERED: MELATONIN 3 MG TABLET PO SCH (21:00)
[2019-10-12] MEDS: SERTRALINE 50 MG TABLET PO SCH (21:01)
[2019-10-12] MEDS: ATORVASTATIN 40 MG TABLET PO SCH (21:01)
[2019-10-13] MEDS: 0.9 % SODIUM CHLORIDE 10 ML SYRINGE IV SCH (05:16)
[2019-10-13] MEDS ORDERED: LABETALOL 5 MG/ML ML IV PRN (07:57)
[2019-10-13] MEDS ORDERED: amLODIPine 5 MG TABLET PO SCH (09:00)
[2019-10-13] MEDS: ENOXAPARIN 40 MG/0.4 ML SYRINGE SQ SCH (09:05)
[2019-10-13] MEDS: FAMOTIDINE 20 MG TABLET PO SCH (09:06)
[2019-10-13] MEDS: CLOPIDOGREL 75 MG TABLET PO SCH (09:06)
[2019-10-13] MEDS: ASPIRIN 81 MG TAB.CHEW PO SCH (09:06)
[2019-10-13] MEDS: DOCUSATE SODIUM 100 MG CAPSULE PO SCH (09:07)
== END 2019-10-13 10:08 | disposition home or self-care (01) ==
LOC: ICU 11:34 → ED 11:34 → ICU 14:20
PROVIDERS: ADMIT Internal Medicine; ATTEND Internal Medicine